=== PATIENT | female | born 1970 | race Caucasian/White ===

== ENCOUNTER 2016-12-03 18:07 | Emergency (ER) | payer OTHER ==
[2016-12-03 18:17] VITALS: RESP 16
[2016-12-03] MEDS ORDERED: NS 1,000 ML IV ONE (19:18)
[2016-12-03] MEDS ORDERED: ONDANSETRON 4 MG/2 ML VIAL IVP ONE (19:18)
[2016-12-03 19:43] LABS: % IMMATURE GRANULYOCYTES 0.2 % (0.0-1.1); ABSOLUTE IMMATURE GRANULOCYTES 0.01 10^3/uL (0.00-0.10); ADD DIFF? NO; ADD MORPH? NO; ADD SCAN? NO; ATYPICAL LYMPHOCYTE FLAG 30 (0-99); FRAGMENT RBC FLAG 0 (0-99); HEMATOCRIT 43.2 % (38.0-47.0); HEMOGLOBIN 14.2 g/dL (12.6-16.3); LEFT SHIFT FLG 0 (0-99); LIPEMIA HEMOLYSIS FLAG 80 (0-99); MEAN CELL HEMOGLOBIN 29.1 pg (27.9-34.1); MEAN CELL HEMOGLOBIN CONCENTR. 32.9 g/dL (32.4-36.7); MEAN CELL VOLUME 88.5 fL (81.5-99.8); MEAN PLATELET VOLUME 10.1 fL (8.7-11.7); PLATELET CLUMPS FLAG 0 (0-99); PLATELET COUNT 222 10^3/uL (150-400); RED BLOOD CELL COUNT 4.88 10^6/uL (4.18-5.33); RED CELL DISTRIBUTION WIDTH 12.6 % (11.5-15.2)
[2016-12-03 19:58] LABS: ALANINE AMINOTRANSFERASE 49 IU/L (9-52); ALBUMIN 3.6 g/dL (3.5-5.0); ALKALINE PHOSPHATASE 81 IU/L (38-126); ANION GAP 13 mEq/L (8-16); ASPARTATE AMINOTRANSFERASE 42 IU/L (14-46); BILIRUBIN,TOTAL 0.5 mg/dL (0.1-1.4); CALCIUM 9.2 mg/dL (8.5-10.4); CARBON DIOXIDE 26 mEq/l (22-31); CHLORIDE 104 mEq/L (97-110); CREATININE 0.8 mg/dL (0.6-1.0); GLOMERULAR FILTRATION RATE > 60; GLUCOSE 83 mg/dL (70-100); POTASSIUM 4.1 mEq/L (3.5-5.2); SODIUM 143 mEq/L (134-144); TOTAL PROTEIN 7.4 g/dL (6.3-8.2)
[2016-12-03 21:01] VITALS: BP 108/80; PULSE 63; TEMP 97.9; O2SAT 97
--- NOTE | 2016-12-03 21:53 | UCPHY ---
H & P Time Seen by Provider: 12/03/16 18:30 Patient Type: New HPI/ROS: 46-year-old female presents complaining of diarrhea since Sunday evening, she states she believes she may have eaten some food that had been left out for too long., no one else at home is sick right now. Review of systems General no fever no chills no weakness HEENT no eye pain no eye discharge. No eye redness, no sore throat Respiratory no cough, no shortness of breath Cardiac no chest pain, no peripheral edema GI no abdominal pain, positive diarrhea, no constipation, mild nausea, no vomiting no flank pain, no hematuria, no dysuria Musculoskeletal no myalgias, no joint pain Heme no easy bruising, no easy bleeding Endo no polyuria, no polydipsia Skin no rashes, no pruritus Neuro no syncope, no dizziness, no headaches Psych is no suicidal ideation, no homicidal ideation Past Medical/Surgical History: None Social History: Alcohol socially, no drugs Smoking Status: Never smoked Physical Exam: 46-year-old female alert and oriented no acute distress nontoxic appearance afebrile HEENT atraumatic normocephalic, extraocular muscles intact, anicteric Oropharynx negative for erythema negative exudate, tolerating her own secretions Neck supple no meningismus Lungs clear to auscultation bilaterally Heart regular rate and rhythm without murmur rub or gallop Abdomen nondistended normoactive bowel sounds soft nontender Back no CVA tenderness, no step-offs, no spinal tenderness Extremities no cyanosis clubbing or edema Neuro alert and oriented, no focal deficits Constitutional: Initial Vital Signs Temperature (C) 36.8 C 12/03/16 18:13 Heart Rate 57 L 12/03/16 18:13 Respiratory Rate 16 12/03/16 18:13 Blood Pressure 113/67 12/03/16 18:13 O2 Sat (%) 100 12/03/16 18:13 O2 Delivery Mode Room Air Allergies/Adverse Reactions: No Known Allergies Allergy (Unverified 12/03/16 18:17) Home Medications: Medication Instructions Recorded NK [No Known Home Meds] 12/03/16 Medical Decision Making ED Course/Re-evaluation: Patient seen and evaluated for diarrhea of 3 days duration Given IV fluids Labs checked CBC, CMP within normal limits Stool WBC negative GI panel positive for astrovirus Impression Diarrhea likely viral Plan Discharge home Supportive care Follow up with primary care physician as needed - Data Points Laboratory Results: Laboratory Results 12/03/16 19:35 12/03/16 19:35 Microbiology Results: MICROBIOLOGY 12/03/16 19:45 Stool Gastrointestinal Tract Panel (PCR) - Final Astrovirus 12/03/16 19:45 Stool Fecal Leukocyte Stain - Final Medications Given: Discontinued Medications Sodium Chloride (Ns) 1,000 mls @ 0 mls/hr IV ONCE ONE PRN Reason: Wide Open Stop: 12/03/16 19:19 Last Admin: 12/03/16 19:35 Dose: 1,000 mls Ondansetron HCl (Zofran) 4 mg IVP EDNOW ONE Stop: 12/03/16 19:19 Last Admin: 12/03/16 20:10 Dose: Not Given Departure - Departure Disposition: Home, Routine, Self-Care Clinical Impression: Diarrhea Condition: Good Instructions: Acute Diarrhea (ED) Referrals: Khadra Fernandes MD [Primary Care Provider] - As per Instructions - PQRS PQRS Measurement: na
== END 2016-12-03 22:18 | disposition home or self-care (01) ==
LOC: CED 18:07
DX: R19.7 Diarrhea, unspecified (principal)
CPT/HCPCS: 80053-PO; 83690-PO; 85025-PO; 96361-PO; 96374-PO; G0463-PO

== ENCOUNTER → 2017-04-13 | Outpatient (CLI) | payer OTHER | LOC: CIMAGING 14:50 | PROVIDERS: ATTEND Family Medicine | DX: Z12.31 Encounter for screening mammogram for malignant neoplasm of breast (principal) | CPT/HCPCS: G0202 ==